=== PATIENT | female | born 1970 | race Caucasian/White ===

== ENCOUNTER 2017-04-11 23:42 | Emergency (ER) | payer OTHER ==
[~2017-04-11 23:42] MED LIST: ABILIFY2 MG PO; ADDERALL XR 3030 M1 PO; ANTIVERT25 MG PO; CIPRO500 M2 PO; DOXYCYCLINE HY100 M3 PO; FLEXERIL10 MG PO; LEXAPRO10 M2; MULTIPLE VITAM1 EAC3 PO; NORCO 5/325 TAB1 TAB PO; OMEPRAZOLE MAGN20 M1 PO; PROPRANOLOL; PROVENTIL HFA6.7 G1 IH
[2017-04-11] MEDS ORDERED: COMPOUND (23:50)
[2017-04-12 00:45] LABS: PREGNANCY-SERUM NEGATIVE (NEGATIVE)
[2017-04-12 00:46] LABS: BASO % 0.4 % (0-2); EOS % 8.3 % (0-7); EOSINOPHIL ABSOLUTE COUNT 0.7 tho/cmm (0.0-0.7); HCT-HEMATOCRIT 37.6 % (34.0-49.0); HGB-HEMOGLOBIN 12.7 gm/dl (12.0-15.5); IMMATURE GRANULOCYTES ABSOLUTE 0.01 tho/cmm (0-0.03); IMMATURE GRANULOCYTES PERCENT 0.1 % (0-0.3); LYMPH % 29.8 % (20-45); LYMPH ABSOLUTE COUNT 2.4 tho/cmm (0.8-4.5); MCH (MEAN CORPUSCULAR HGB) 29.5 pg (28.0-32.0); MCHC MEAN CORPUSCULAR HGB CONC 33.8 % (32.0-36.0); MCV (MEAN CELL VOLUME) 87.2 fl (82.0-96.0); MEAN PLATELET VOLUME 9.4 cmc (9.4-12.4); MONO % 6.5 % (0-12); MONOCYTE ABSOLUTE COUNT 0.5 tho/cmm (0.0-1.2); NEUTROPHIL ABSOLUTE COUNT 4.4 tho/cmm (1.6-8.0); NEUTROPHIL-AUTOMATED 4.4 tho/cmm (1.6-8.0); NEUTROPHILS % 54.9 % (40-80); PLATELET COUNT 238 tho/cmm (150-450); RED BLOOD COUNT 4.31 mil/cmm (4.00-5.20); WHITE BLOOD COUNT 8.1 tho/cmm (4.0-10.0)
[2017-04-12 00:49] LABS: ALB/GLOB RATIO 0.7 (0.8-2.0); ALKALINE PHOSPHATASE 68 U/L (33-138); ALT/SGPT 18 U/L (12-78); ANION GAP 11 mmol/L (0-20); AST/SGOT 15 U/L (10-40); BILIRUBIN,TOTAL 0.2 mg/dl (0-1.5); BLOOD UREA NITROGEN 14 mg/dl (6-24); CALCIUM 8.6 mg/dl (8.5-10.5); CARBON DIOXIDE-VENOUS 25 mmol/L (22-32); CHLORIDE 107 mmol/l (96-110); CREATININE 0.62 mg/dl (0.50-1.10); GLUCOSE 91 mg/dL (70-110); LIPASE 111 U/L (73-393); POTASSIUM 3.8 mmol/L (3.7-5.1); SODIUM 139 mmol/L (135-145); eGFR VALUE FOR BLACK >90 mL/Min
== END 2017-04-12 02:47 ==
LOC: EDMED 23:42
PROVIDERS: Emergency Medicine
DX: R10.32 Left lower quadrant pain (principal); G89.29 Other chronic pain; Z87.19 Personal history of other diseases of the digestive system
CPT/HCPCS: Q9967